=== PATIENT | male | born 1980 | race Caucasian/White ===

== ENCOUNTER 2017-02-21 18:45 | Emergency (ER) | payer MEDICAID ==
[~2017-02-21] VITALS: Ht 160 cm; Wt 95.3 kg
[2017-02-21 19:27] VITALS: BP 150/82
--- NOTE | 2017-02-21 21:30 | NUR ---
PT TAKEN TO BED 5
--- NOTE | 2017-02-21 21:53 | NUR ---
Dr. Blum evaluting patient at bedside.
[2017-02-21] MEDS ORDERED: PENICILLIN G BENZATHINE L-A 0.6 MU/ML SYR IM ONE (22:00)
[2017-02-21] MEDS ORDERED: KETOROLAC 60 MG/2 ML VIAL IM ONE (22:00)
[2017-02-21 22:35] VITALS: BP 135/75
--- NOTE | 2017-02-21 22:35 | NUR ---
Patient discharged with v/s stable. Written and verbal after care instructions given and explained. Patient alert, oriented and verbalized understanding of instructions. Ambulatory with steady gait. All questions addressed prior to discharge. ID band removed. Patient advised to follow up with PMD. Rx of PREDNISONE, MOTRIN AND SUDAFED given. Patient educated on indication of medication including possible reaction and side effects. Opportunity to ask questions provided and answered.
== END 2017-02-21 22:35 | disposition home or self-care (01) ==
LOC: MED 18:45
DX: J02.9 Acute pharyngitis, unspecified (principal); R09.81 Nasal congestion
CPT/HCPCS: 96372; 99284; J0561; J1885

== ENCOUNTER 2017-06-05 14:36 | Emergency (ER) | payer MEDICAID ==
[~2017-06-05] VITALS: Ht 160 cm; Wt 97.5 kg
[2017-06-05 15:00] VITALS: BP 138/86
--- NOTE | 2017-06-05 16:55 | NUR ---
Patient ambulated to bed 7 with family. RN evaluating patient at bedside.
--- NOTE | 2017-06-05 16:57 | NUR ---
37 F BIB SELF C/O 10/10 "PRESSURE" THROAT AND BL EAR PAIN X 4 DAYS WITH PRODUCTIVE COUGH WITH WHITE PHELGM; DENIES V/D; SKIN IS PINK/WARM/DRY; AAOX4 WITH EVEN AND STEADY GAIT; RR ARE EVEN AND UNLABORED; VSS; PATIENT POSITIONED FOR COMFORT; HOB ELEVATED; BEDRAILS UP X2; BED DOWN. ER MD MADE AWARE OF PT STATUS.
--- NOTE | 2017-06-05 17:04 | NUR ---
Dr. Galarza evaluating patient at bedside.
[2017-06-05] MEDS ORDERED: KETOROLAC 60 MG/2 ML VIAL IM ONE (17:10)
--- NOTE | 2017-06-05 17:48 | NUR ---
PT YLOE=412.4 ORALLY; PT GIVEN MEDICATION PER PROTOCOL AND COOLING MEASUREMENTS APPLIE; WILL FOLLOW UP; ER MD MORRISON NOTIFIED AND AWARE
[2017-06-05] MEDS ORDERED: ACETAMINOPHEN 325 MG TAB ONE (17:53)
[2017-06-05 18:22] VITALS: BP 128/78
--- NOTE | 2017-06-05 18:22 | NUR ---
Patient discharged with v/s stable. Written and verbal after care instructions given and explained. Patient alert, oriented and verbalized understanding of instructions. Ambulatory with steady gait. All questions addressed prior to discharge. ID band removed. Patient advised to follow up with PMD. Rx of Naproxen, Augmentin, and Promethazine given. Patient educated on indication of medication including possible reaction and side effects. Opportunity to ask questions provided and answered.
[2017-06-05] MEDS ORDERED: ACETAMINOPHEN 650 MG/20.3 ML UDC PO ONE (18:30)
== END 2017-06-05 18:22 | disposition home or self-care (01) ==
LOC: EDSEX 14:36 → MED 14:36
DX: J06.9 Acute upper respiratory infection, unspecified (principal); H66.91 Otitis media, unspecified, right ear
CPT/HCPCS: 96372; 99283; J1885

== ENCOUNTER 2020-02-18 20:07 | Emergency (ER) | payer MEDICAID ==
[~2020-02-18] VITALS: Ht 160 cm; Wt 96.6 kg
[2020-02-18 20:11] VITALS: BP 140/87
--- NOTE | 2020-02-18 20:15 | NUR ---
39 Y/O MALE C/O PT CUTTING METAL YESTERDAY AT 3PM AND A PIECE OF METAL GOT INTO PT'S LEFT EYE. PT NOT WEARING SAFETY GLASSES. PT TRIED TO GET THE METAL OUT WITH DIRTY FINGERS BUT UNABLE. PT DID NOT FLUSH EYE OUT. PT STATES LEFT EYE IS BLURRY AND SENSITIVE TO LIGHT. VISUAL ACUITY (OD - 20/20-2 ---- OS- 20/30-1). PT TOOK TYLENOL AT 2PM TODAY WITH MINIMAL RELIEF. LEFT EYE IS RED. PAIN IS 9/10. DENIES N/V/D; SKIN IS PINK/WARM/DRY; AAOX4 WITH EVEN AND STEADY GAIT; PT DENIES ANY FEVER, CP, SOB, OR COUGH AT THIS TIME; VSS; PATIENT POSITIONED FOR COMFORT; HOB ELEVATED; BEDRAILS UP X2; BED DOWN AND LOCKED. ER MADE AWARE OF PT STATUS. PMH: PRE-DIABETIC NKA
--- NOTE | 2020-02-18 20:15 | NUR ---
PT AMBULATED TO BED 11 WITH STEADY GAIT.
[2020-02-18] MEDS ORDERED: FLUORESCEIN OPTH STRIP 1 MG ONE (20:23)
[2020-02-18] MEDS ORDERED: TETRACAINE HCL/PF 0.5% OPTH 4 ML BTL ONE (20:23)
--- NOTE | 2020-02-18 20:31 | NUR ---
PA WITH PT
--- NOTE | 2020-02-18 20:41 | NUR ---
Dr. Ovalle examining patient.
--- NOTE | 2020-02-18 20:56 | NUR ---
PA. MARADIAGA AT BEDSIDE
[2020-02-18] MEDS ORDERED: FLUORESCEIN OPTH STRIP 1 MG OP ONE (21:00)
[2020-02-18] MEDS ORDERED: TETRACAINE HCL/PF 0.5% OPTH 4 ML BTL OP ONE (21:00)
--- NOTE | 2020-02-18 21:00 | NUR ---
Patient discharged with v/s stable. Written and verbal after care instructions given and explained. Patient verbalized understanding. Ambulatory with steady gait. All questions addressed prior to discharge. Advised to follow up with PMD.
[2020-02-18 21:01] VITALS: BP 140/87
== END 2020-02-18 21:00 | disposition home or self-care (01) ==
LOC: MED 20:07
DX: S05.02XA Injury of conjunctiva and corneal abrasion without foreign body, left eye, initial encounter (principal); H16.0 Corneal ulcer; R03.0 Elevated blood-pressure reading, without diagnosis of hypertension; R73.03 Prediabetes; T15.02XA Foreign body in cornea, left eye, initial encounter; X58.XXXA Exposure to other specified factors, initial encounter; Y93.89 Activity, other specified; Y92.89 Other specified places as the place of occurrence of the external cause; Y99.8 Other external cause status
CPT/HCPCS: 99282; 99283